=== PATIENT | male | born 1990 | race Caucasian/White ===

== ENCOUNTER 2023-01-08 12:11 | Outpatient (CLI) | payer OTHER, SELFPAY ==
[2023-01-08 12:38] LABS: Hematocrit 47.9 % (42.0-52.0); Hemoglobin 15.9 g/dL (14.0-18.0); Mean Corpuscular HGB Conc 33.2 g/dl (32-36); Mean Corpuscular Volume 87.4 fl (80-100); Mean Platelet Volume 9.7 fl (7.4-10.4); Platelet Count Result 281 k/mm3 (150-375); Red Blood Count 5.48 M/mm3 (4.6-6.20); Red Cell Distribution Width 13.3 % (11.5-14.5); White Blood Count 8.5 K/mm3 (4.5-10.0)
[2023-01-08 12:42] LABS: Appearance Urine Clear (Clear); Bilirubin Urine Negative (Negative); Blood Urine Negative (Negative); Color Urine Yellow (Yellow); Glucose Urine UA Negative (Negative); Ketones Urine Negative (Negative); Leukocyte Esterase Ur Negative LEU/UL (NEGATIVE); Nitrate Urine Negative (Negative); Protein Urine Negative (Negative); Specific Grav Ur 1.021 (1.001-1.035); pH Urine 5.5 (5.0-9.0)
[2023-01-08 12:45] LABS: Add Urine Microscopic? NO
[2023-01-08 12:49] LABS: Alanine Aminotransferase 35 U/L (6-50); Albumin Level 4.1 g/dL (3.5-5.1); Alkaline Phosphatase 65 U/L (38-126); Anion Gap 8 mmol/L (8-16); Aspartate Amino Transferase 36 U/L (17-59); Bilirubin,Total 0.6 mg/dL (0.2-1.3); Blood Urea Nitrogen 13 mg/dL (9-20); Calcium 9.2 mg/dL (8.4-10.2); Carbon Dioxide 28 mmol/L (22-30); Chloride 103 mmol/L (98-107); Cholesterol 186 mg/dL (0-200); Estimated Glomerular Filt Rate > 60; Glucose 94 mg/dL (65-110); HDL Direct 27 mg/dL; Sodium 139 mmol/L (137-145); Triglycerides 133 mg/dL (<150)
[2023-01-08 13:00] LABS: LDL Cholesterol Direct 119 mg/dL
== END 2023-01-08 12:12 | disposition home or self-care (01) ==
PROVIDERS: PCP Family Medicine; Visit Provider Family Medicine
DX: I10 Essential (primary) hypertension (principal)
CPT/HCPCS: 36415; 80053; 80061; 81003; 84443; 85027

== ENCOUNTER 2023-04-25 22:07 | Emergency (ER) | payer OTHER, SELFPAY ==
--- NOTE | 2023-04-25 22:18 | ED.GENADULT ---
HPI - General Adult General Chief complaint: Nausea/Vomiting/Diarrhea Stated complaint: n/v/d, ALCALA, body aches Time Seen by Provider: 04/25/23 22:11 History of Present Illness HPI narrative: Patient is a 32-year-old gentleman presents emerged department with chief complaint of nausea vomiting diarrhea body aches and headache. Patient reports that he started having body aches headache and multiple episodes of nausea and vomiting. Patient states he is also had diarrhea with this. Patient reports no pain in the abdomen and reports that he feels like he is starting to get dehydrated. Related Data Home Medications Medication Instructions Recorded Confirmed escitalopram oxalate 20 mg tablet 20 mg PO DAILY 11/15/22 11/15/22 Allergies Allergy/AdvReac Type Severity Reaction Status Date / Time CATS Allergy Mild unk Uncoded 11/15/22 09:27 Dog Dander Allergy Mild unk Uncoded 11/15/22 09:27 [email or web address] Allergy Mild Unknown Uncoded 11/15/22 09:27 Review of Systems Review of Systems: A 10 system review of systems was completed on the patient and is negative except for what is stated in the HPI. Nursing and ancillary documentation was reviewed. [facility] Past Medical History Medical History Anxiety Asthma HTN (hypertension) Surgical History Surgical History History of ankle fracture R ORIF 2019 Social History Social History Smoking status: Never smoker Alcohol intake: current Substance use: never Living arrangements: with family Occupation/Education: occupation Gender identity (if verbalized by the patient): Male Sexual Orientation (if Verbalized by the Patient): Straight or Heterosexual Exam Narrative: GENERAL: Well-appearing, well-nourished, and in no acute distress. HEAD: Normocephalic, atraumatic. EYES: PERRLA and EOMI. ENT: Nares clear, no rhinorrhea or epistaxis. Mucous membranes dry. NECK: Supple. CHEST: Clear to auscultation. No respiratory distress. HEART: Regular rate and rhythm. No murmur heard. Normal peripheral pulses. ABDOMEN: Soft, nontender, nondistended, normal active bowel sounds. EXTREMITIES: Normal range of motion. No edema. SKIN: Warm, dry, no rash. NEURO: No focal deficits. Alert and oriented x3. PSYCH: Normal mood and affect. Course Vital Signs Vital signs: Vital Signs Temperature 37.1 C 04/25/23 22:31 Pulse Rate 104 H 04/25/23 22:31 Respiratory Rate 20 04/25/23 22:31 Blood Pressure 113/73 04/25/23 22:31 Pulse Oximetry 97 04/25/23 22:31 Temperature 37.1 C 04/25/23 22:31 Pulse Rate 97 04/25/23 23:06 Respiratory Rate 18 04/25/23 23:06 Blood Pressure 113/73 04/25/23 22:31 Pulse Oximetry 96 04/25/23 23:06 Medical Decision Making MDM Narrative Medical decision making narrative: Differential diagnosis includes gastroenteritis, viral syndrome, dehydration, UTI patient Laboratory studies were obtained and the patient which showed a white count of 13.5 electrolytes are within normal limits bilirubin was 1.0 AST was 37 ALT was 55 which was slightly elevated alk phos was normal except lipase was 67 urinalysis showed a specific gravity 1.026 and urine protein was 1+ otherwise NO other abnormalities in the urinalysis Receiving IV fluids antiemetics the patient is feeling much better Vital Signs Vital Signs: Vital Signs Temperature 37.1 C 04/25/23 22:31 Pulse Rate 104 H 04/25/23 22:31 Respiratory Rate 20 04/25/23 22:31 Blood Pressure 113/73 04/25/23 22:31 Pulse Oximetry 97 04/25/23 22:31 Temperature 37.1 C 04/25/23 22:31 Pulse Rate 97 04/25/23 23:06 Respiratory Rate 18 04/25/23 23:06 Blood Pressure 113/73 04/25/23 22:31 Pulse Oximetry 96 04/25/23 23:06 Lab Data 04/25/23 22:24
[2023-04-25] MEDS: SODIUM CHLORIDE 0.9% IV 1,000 ML 999 ML IV CONT ×2 (22:23)
[2023-04-25] MEDS: ONDANSETRON INJ 4 MG/2 ML VIAL IV PUSH (22:25)
[2023-04-25] MEDS: KETOROLAC 30 MG/ML VIAL (*BKC) IV PUSH (22:26)
[2023-04-25] MEDS: DICYCLOMINE HCL INJ 20 MG/2 ML VIAL IM (22:27)
[2023-04-25 22:31] VITALS: BP 113/73; PULSE 104; RESP 20; TEMP 37.1; O2SAT 97
[2023-04-25 22:50] LABS: Hematocrit 47.2 % (42.0-52.0); Hemoglobin 15.7 g/dL (14.0-18.0); Mean Corpuscular HGB Conc 33.3 g/dl (32-36); Mean Corpuscular Hemoglobin 29.1 pg (26-34); Mean Corpuscular Volume 87.6 fl (80-100); Mean Platelet Volume 9.9 fl (7.4-10.4); Platelet Count Result 295 k/mm3 (150-375); Red Blood Count 5.39 M/mm3 (4.6-6.20); Red Cell Distribution Width 13.6 % (11.5-14.5); White Blood Count 13.5 K/mm3 (4.5-10.0)
[2023-04-25 22:59] LABS: Alanine Aminotransferase 55 U/L (6-50); Albumin Level 4.6 g/dL (3.5-5.1); Alkaline Phosphatase 79 U/L (38-126); Anion Gap 7 mmol/L (8-16); Aspartate Amino Transferase 37 U/L (17-59); Blood Urea Nitrogen 17 mg/dL (9-20); Calcium 9.5 mg/dL (8.4-10.2); Carbon Dioxide 30 mmol/L (22-30); Chloride 102 mmol/L (98-107); Estimated Glomerular Filt Rate > 60; Glucose 114 mg/dL (65-110); Lipase 67 U/L (23-300); Potassium 3.9 mmol/L (3.4-5.0); Sodium 139 mmol/L (137-145)
[2023-04-25 23:06] VITALS: PULSE 97; RESP 18; O2SAT 96
[2023-04-25 23:14] LABS: Appearance Urine Clear (Clear); Bacteria Urine None Seen /hpf; Bilirubin Urine Negative (Negative); Blood Urine Negative (Negative); Color Urine Dark Yellow (Yellow); Glucose Urine UA Negative (Negative); Ketones Urine Negative (Negative); Leukocyte Esterase Ur Negative LEU/UL (Negative); Nitrate Urine Negative (Negative); Non Pathogenic Casts 0-2; Protein Urine 1+ mg/dL (Negative); RBC Urine 0-2 /hpf (0-2); Specific Grav Ur 1.026 (1.001-1.035); Spermatozoa Urine Present; Squamous Epithelial Cell Urine None seen /hpf (Few); WBC Urine 0-5 /hpf; pH Urine 8.5 (5.0-9.0)
[2023-04-25 23:32] LABS: Add Urine Microscopic? YES
[2023-04-25 23:43] LABS: Band Neutrophils Percent 14 % (0-6); Eosinophils Absolute Manual 0.13 K/mm3 (0.02-0.5); Eosinophils Percent Manual 1 % (0-4); Lymphocytes Absolute Manual 0.67 K/mm3 (1.1-4.5); Lymphocytes Percent Manual 5 % (18-44); Monocytes Absolute Manual 0.54 K/mm3 (0.1-0.90); Monocytes Percent Manual 4 % (3-9); Neutrophils Absolute Manual 12.15 K/mm3 (1.3-6.7); Neutrophils Percent Manual 76 % (46-73); Platelet Estimate Adequate (Adequate); Total Cells Counted 100
[2023-04-25 23:44] LABS: Schistocytes None Seen (NORMAL)
== END 2023-04-25 23:51 | disposition home or self-care (01) ==
PROVIDERS: Emergency Provider Emergency Medicine; PCP Family Medicine
DX: K52.9 Noninfective gastroenteritis and colitis, unspecified (principal); J45.909 Unspecified asthma, uncomplicated; I10 Essential (primary) hypertension; F41.9 Anxiety disorder, unspecified
CPT/HCPCS: 36415; 80053; 81001; 83690; 85025; 96361; 96372; 96374; 96375; 99284; J0500; J1885; J2405; J7030

== ENCOUNTER 2023-05-27 12:16 | Emergency (ER) | payer OTHER, SELFPAY ==
[2023-05-27 12:23] VITALS: BP 155/84; PULSE 108; RESP 16; TEMP 36.6; O2SAT 100
[2023-05-27] MEDS: PANTOPRAZOLE SODIUM IV 40 MG VIAL IV PUSH (12:36)
[2023-05-27] MEDS: ONDANSETRON INJ 4 MG/2 ML VIAL IV PUSH (12:36)
[2023-05-27] MEDS: LACTATED RINGERS 2,000 ML 999 ML IV CONT (12:36)
[2023-05-27] MEDS: HYOSCYAMINE SULFATE 0.125 MG TABLET PO (12:36)
--- NOTE | 2023-05-27 12:36 | ED.NAVMDI ---
HPI - Nausea/Vomiting/Diarrhea General Chief complaint: Nausea/Vomiting/Diarrhea Stated complaint: Diarrhea Time Seen by Provider: 05/27/23 12:22 History of Present Illness HPI Narrative: Patient is a 32-year-old male with history of possible undiagnosed IBS here with nausea, vomiting, myalgias. He states that symptoms began yesterday evening. He states he has had significant nausea and more than 10 episodes of diarrhea since last night, usually using the restroom every 2 hours. He notes now it is just liquid in content. He has had difficulty maintaining p.o. intake due to his nausea. He denies fever chills however he has had diffuse myalgias. 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 No cough, congestion. No prior abdominal surgeries. Related Data Home Medications Medication Instructions Recorded Confirmed escitalopram oxalate 20 mg tablet 20 mg PO DAILY 11/15/22 11/15/22 Allergies Allergy/AdvReac Type Severity Reaction Status Date / Time CATS Allergy Mild unk Uncoded 11/15/22 09:27 Dog Dander Allergy Mild unk Uncoded 11/15/22 09:27 [email or web address] Allergy Mild Unknown Uncoded 11/15/22 09:27 Review of Systems Review of Systems: All systems reviewed & are unremarkable except as noted in HPI and below PMFSH Past Medical History Medical History Anxiety Asthma HTN (hypertension) Surgical History Surgical History History of ankle fracture R ORIF 2019 Social History Social History Smoking status: Never smoker Alcohol intake: current Substance use: never Living arrangements: with family Occupation/Education: occupation Gender identity (if verbalized by the patient): Male Sexual Orientation (if Verbalized by the Patient): Straight or Heterosexual Exam Narrative: GENERAL: Well-appearing, well-nourished, and in no acute distress. HEAD: Normocephalic, atraumatic. EYES: PERRLA and EOMI. ENT: Nares clear. Mucous membranes moist. NECK: Supple. CHEST: Clear to auscultation. No respiratory distress. HEART: Regular rate and rhythm. Normal peripheral pulses. ABDOMEN: Soft, Some mild epigastric and left upper quadrant tenderness without rebound or guarding, nondistended. EXTREMITIES: Normal range of motion. No edema. SKIN: Warm, dry, no rash. NEURO: No focal deficits. Alert and oriented x3. PSYCH: Normal mood and affect. Course Course Emergency Course: Patient seen and evaluated on arrival. Here with nausea and vomiting and some abdominal pain. Patient also notes significant myalgias. Concern for possible viral infectious process vs gastroenteritis, less likely intraabdominal surgical pathology given reassuring exam. Will do IV fluids, basic lab work, antiemetics, Levsin, Pepcid. will hold on CT at this time given reassuring exam however if lab work shows abnormalities or patient has persistent symptoms despite resuscitation with a negative COVID/influenza/ RSV swab may escalate to imaging. Chart review performed. Tachycardic however remainder of triage vitals are grossly normal. It does appear he was here about 1 month ago for similar symptoms. 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 Lab work reviewed. WBC of 10.1, CMP within normal limits. Mild DANNY with a creatinine of 1.1 from baseline of 0.9 on last visit. UA negative for UTI. COVID, Influenza, RSV negative. Will reevaluate. Patient feeling quite a bit better after medications. Continues to be nontoxic appearing. I do not believe given his lab work and clinical picture that imaging is indicated at this time. Additional IV fluids will be provided and plan for discharge. Patient is advised follow-up with his primary care doctor. The results of pertinent
[2023-05-27 12:43] LABS: Basophils Percent Auto 0.3 % (0.2-1.2); Eosinophils Absolute Auto 0.2 K/mm3 (0-0.3); Eosinophils Percent Auto 1.7 % (0-4.4); Hematocrit 45.5 % (42.0-52.0); Hemoglobin 15.2 g/dL (14.0-18.0); Immature Granulocyte Absolute 0.04 K/mm3 (0.00-0.031); Immature Granulocyte Percent A 0.4 % (0-0.5); Lymphocytes Absolute Auto 0.93 K/mm3 (0.9-3.2); Lymphocytes Percent Auto 9.2 % (18.3-44.2); Mean Corpuscular HGB Conc 33.4 g/dl (32-36); Mean Corpuscular Hemoglobin 29.4 pg (26-34); Mean Platelet Volume 9.8 fl (7.4-10.4); Monocytes Absolute Auto 1.2 K/mm3 (0.1-0.6); Monocytes Percent Auto 12.2 % (2.6-8.5); Neutrophils Absolute Auto 7.7 K/mm3 (1.3-6.7); Neutrophils Percent Auto 76.2 % (45.5-73.1); Platelet Count Result 245 k/mm3 (150-375); Red Blood Count 5.17 M/mm3 (4.6-6.20); Red Cell Distribution Width 13.1 % (11.5-14.5); White Blood Count 10.1 K/mm3 (4.5-10.0)
[2023-05-27 12:47] LABS: Appearance Urine Clear (Clear); Bacteria Urine None Seen /hpf; Bilirubin Urine Negative (Negative); Blood Urine Trace (Negative); Color Urine Dark Yellow (Yellow); Glucose Urine UA Negative (Negative); Ketones Urine Trace mg/dL (Negative); Leukocyte Esterase Ur Negative LEU/UL (Negative); Nitrate Urine Negative (Negative); Non Pathogenic Casts 0-2; Protein Urine Negative (Negative); Specific Grav Ur 1.031 (1.001-1.035); Squamous Epithelial Cell Urine None seen /hpf (Few); Urobilinogen Urine 0.2 mg/dL (<2.0); WBC Urine 0-5 /hpf; pH Urine 5.5 (5.0-9.0)
[2023-05-27 12:48] VITALS: PULSE 98; RESP 22; O2SAT 96
[2023-05-27 12:48] LABS: Add Urine Microscopic? YES
[2023-05-27 13:00] VITALS: PULSE 99; RESP 23; O2SAT 97
[2023-05-27 13:02] LABS: Sodium 140 mmol/L (137-145)
[2023-05-27 13:08] LABS: Alanine Aminotransferase 32 U/L (6-50); Albumin Level 4.6 g/dL (3.5-5.1); Alkaline Phosphatase 85 U/L (38-126); Anion Gap 9 mmol/L (8-16); Aspartate Amino Transferase 30 U/L (17-59); Bilirubin,Total 0.8 mg/dL (0.2-1.3); Blood Urea Nitrogen 16 mg/dL (9-20); Calcium 9.3 mg/dL (8.4-10.2); Carbon Dioxide 27 mmol/L (22-30); Chloride 104 mmol/L (98-107); Estimated CRCL calculation 120 ml/min; Estimated Glomerular Filt Rate > 60; Glucose 117 mg/dL (65-110); Lipase 63 U/L (23-300); Potassium 4.1 mmol/L (3.4-5.0)
[2023-05-27] MEDS: KETOROLAC 15 MG/ML VIAL (*BKC) IV PUSH (13:18)
[2023-05-27 13:19] LABS: Influenza A QL RT-PCR Negative (Negative); Influenza B QL RT-PCR Negative (Negative); RSV RNA, RT-PCR Negative (Negative); SARS-CoV-2 RNA PCR Negative (Negative)
[2023-05-27] MEDS: LACTATED RINGERS 1,000 ML 999 ML IV CONT (14:00)
[2023-05-27 14:40] VITALS: BP 145/79; PULSE 96; RESP 18; TEMP 36.8; O2SAT 100
== END 2023-05-27 14:41 | disposition home or self-care (01) ==
PROVIDERS: Emergency Provider Student in an Organized Health Care Education/Training Program; PCP Family Medicine
DX: B34.9 Viral infection, unspecified (principal); R19.7 Diarrhea, unspecified; I10 Essential (primary) hypertension; Z20.822 Contact with and (suspected) exposure to COVID-19
CPT/HCPCS: 36415; 80053; 81001; 83690; 85025; 87637; 96361; 96374; 96375; 99284; A9270; C9113; J1885; J2405; J7120

== ENCOUNTER 2023-09-05 19:09 | Emergency (ER) | payer OTHER, SELFPAY ==
[2023-09-05 19:12] VITALS: BP 138/84; PULSE 84; RESP 18; TEMP 36.7; O2SAT 98
--- NOTE | 2023-09-05 20:01 | ED.GENADULT ---
HPI - General Adult General Chief complaint: Upper Respiratory Infection Stated complaint: coughing green mucus Time Seen by Provider: 09/05/23 19:34 History of Present Illness HPI narrative: 32-year-old male present to the emergency department for evaluation of cough congestion and increased sputum production over the course of the last 2 weeks. Patient states he has had some sinus congestion but also reports significant coughing up of mucus. Patient has been taking [id number] medications to help with this but states he has had no improvement. Patient did test for COVID home and was negative. Related Data Home Medications Medication Instructions Recorded Confirmed escitalopram oxalate 20 mg tablet 20 mg PO DAILY 11/15/22 11/15/22 Allergies Allergy/AdvReac Type Severity Reaction Status Date / Time CATS Allergy Mild unk Uncoded 11/15/22 09:27 Dog Dander Allergy Mild unk Uncoded 11/15/22 09:27 [email or web address] Allergy Mild Unknown Uncoded 11/15/22 09:27 Review of Systems Review of Systems: All systems reviewed & are unremarkable except as noted in HPI and below PMFSH Past Medical History Medical History Anxiety Asthma HTN (hypertension) Surgical History Surgical History History of ankle fracture R ORIF 2019 Social History Social History Smoking status: Never smoker Alcohol intake: current Substance use: never Living arrangements: with family Occupation/Education: occupation Gender identity (if verbalized by the patient): Male Sexual Orientation (if Verbalized by the Patient): Straight or Heterosexual Exam Narrative: APPEARANCE: Well appearing, no pain, no distress, well-nourished. HEAD: normocephalic, atraumatic. EYES: PERRLA/EOMI, conjunctivae clear. NOSE: Normal no drainage EARS:TMS clear with good light reflex. THROAT: Pharynx clear, no exudate. NECK: Supple. No adenopathy, no masses. RESPIRATORY: Airway patent, respirations nonlabored. Clear to auscultation bilaterally, no rales, rhonchi, wheezing. CARDIOVASCULAR: Regular rate and rhythm without murmurs rubs or gallops. ABDOMINAL: Soft, nontender, nondistended, normal bowel sounds MUSCULOSKELETAL: Moves all extremities. Strength/ROM intact, No edema, No calf tenderness. NEURO: Alert. Cranial nerves II through XII intact. Good gait. Good coordination SKIN: Warm, dry. Normal Color Course Course Emergency Course: Patient was started on oral antibiotics and discharged to home. Vital Signs Vital signs: Vital Signs Temperature 98.1 F 09/05/23 19:12 Pulse Rate 84 09/05/23 19:12 Respiratory Rate 18 09/05/23 19:12 Blood Pressure 138/84 09/05/23 19:12 Pulse Oximetry 98 09/05/23 19:12 Oxygen Delivery Room Air 09/05/23 19:12 Temperature 98.1 F 09/05/23 19:12 Pulse Rate 84 09/05/23 19:12 Respiratory Rate 18 09/05/23 19:12 Blood Pressure 138/84 09/05/23 19:12 Pulse Oximetry 99 09/05/23 20:13 Oxygen Delivery Room Air 09/05/23 20:13 Medical Decision Making [facility] Narrative Medical decision making narrative: 32-year-old male presents emergency department for evaluation of increased sputum production with cough over the last 2 weeks. Patient was afebrile with normal vital signs. Lungs were clear to auscultation. Due to the duration of the illness patient was started on antibiotics for possible pneumonia. Patient was started on Augmentin and azithromycin. Patient was updated the results of his workup. All questions concerns were addressed patient was well-appearing at time of discharge. Differential Diagnosis Differential Diagnosis: Pneumonia, COVID, RSV, influenza Vital Signs Vital Signs: Vital Signs Temperature 98.1 F 09/05/23 19:12 Pulse Rate 84 09/05/23 19:12 Respiratory Rate 18
[2023-09-05 20:11] LABS: Influenza A QL RT-PCR Negative (Negative); Influenza B QL RT-PCR Negative (Negative); RSV RNA, RT-PCR Negative (Negative); SARS-CoV-2 RNA PCR Negative (Negative)
[2023-09-05] MEDS: AMOXICILLIN/CLAVULANATE K 875-125 MG TAB 1 TABLET PO (20:11)
[2023-09-05] MEDS: AZITHROMYCIN 250 MG TABLET 500 MG PO (20:11)
[2023-09-05 20:13] VITALS: O2SAT 99
== END 2023-09-05 20:14 | disposition home or self-care (01) ==
PROVIDERS: Emergency Medicine; Emergency Provider Emergency Medicine; PCP Family Medicine
DX: J06.9 Acute upper respiratory infection, unspecified (principal); F41.9 Anxiety disorder, unspecified; I10 Essential (primary) hypertension; J45.909 Unspecified asthma, uncomplicated; Z20.822 Contact with and (suspected) exposure to COVID-19
CPT/HCPCS: 87637; 99283; A9270

== ENCOUNTER 2023-11-29 16:20 | Outpatient (CLI) | payer OTHER, SELFPAY ==
[2023-11-29 16:45] LABS: Appearance Urine Clear (Clear); Bilirubin Urine Negative (Negative); Blood Urine Negative (Negative); Color Urine Yellow (Yellow); Glucose Urine UA Negative (Negative); Ketones Urine Negative (Negative); Leukocyte Esterase Ur Negative LEU/UL (Negative); Nitrate Urine Negative (Negative); Protein Urine Negative (Negative); Specific Grav Ur 1.021 (1.001-1.035); pH Urine 6.5 (5.0-9.0)
[2023-11-29 16:52] LABS: Add Urine Microscopic? NO
[2023-11-29 17:26] LABS: Alanine Aminotransferase 34 U/L (6-50); Albumin Level 4.3 g/dL (3.5-5.1); Alkaline Phosphatase 71 U/L (38-126); Anion Gap 4 mmol/L (4-12); Aspartate Amino Transferase 30 U/L (17-59); Bilirubin,Total 0.8 mg/dL (0.2-1.3); Blood Urea Nitrogen 13 mg/dL (9-20); Calcium 9.3 mg/dL (8.4-10.2); Carbon Dioxide 29 mmol/L (22-30); Chloride 107 mmol/L (98-107); Cholesterol 169 mg/dL (0-200); Estimated Glomerular Filt Rate > 60; Glucose 92 mg/dL (65-110); HDL Direct 32 mg/dL; Potassium 3.8 mmol/L (3.4-5.0); Sodium 140 mmol/L (137-145); Triglycerides 79 mg/dL (<150)
[2023-11-29 17:27] LABS: Hematocrit 44.5 % (42.0-52.0); Hemoglobin 14.9 g/dL (14.0-18.0); Mean Corpuscular HGB Conc 33.5 g/dl (32-36); Mean Corpuscular Hemoglobin 29.1 pg (26-34); Mean Corpuscular Volume 86.9 fl (80-100); Mean Platelet Volume 9.9 fl (7.4-10.4); Platelet Count Result 274 k/mm3 (150-375); Red Blood Count 5.12 M/mm3 (4.6-6.20); Red Cell Distribution Width 12.6 % (11.5-14.5); White Blood Count 7.5 K/mm3 (4.5-10.0)
[2023-11-29 17:37] LABS: LDL Cholesterol Direct 119 mg/dL
== END 2023-11-29 16:21 | disposition home or self-care (01) ==
PROVIDERS: PCP Family Medicine; Visit Provider Physician Assistant Medical
DX: J45.909 Unspecified asthma, uncomplicated (principal); F41.9 Anxiety disorder, unspecified; I10 Essential (primary) hypertension; Z00.00 Encounter for general adult medical examination without abnormal findings
CPT/HCPCS: 36415; 80053; 80061; 81003; 84443; 85027